=== PATIENT | male | born 1985 | race African-American/Black ===

== ENCOUNTER 2017-06-20 16:27 | Outpatient (CLI) | payer OTHER | END 2017-06-20 20:11 | disposition home or self-care (01) | LOC: RAD 16:27 | DX: M54.13 Radiculopathy, cervicothoracic region (principal) ==

== ENCOUNTER 2021-01-08 10:08 | Outpatient (CLI) | payer OTHER | END 2021-01-08 18:58 | disposition home or self-care (01) | LOC: US 10:08 | PROVIDERS: ATTEND Family Medicine | DX: R10.9 Unspecified abdominal pain (principal); E66.9 Obesity, unspecified ==